=== PATIENT | male | born 1970 | race Caucasian/White ===

== ENCOUNTER 2021-01-08 00:04 | Emergency (ER) | payer OTHER ==
[~2021-01-08] VITALS: Ht 180.3 cm; Wt 109.0 kg
[2021-01-08] MEDS ORDERED: IBUPROFEN 600MG TABLET PO STA (01:13)
[2021-01-08 01:32] VITALS: BP 152/90
[2021-01-08] MEDS ORDERED: CYCL25PO21 PO (03:17)
[2021-01-08] MEDS ORDERED: IBUP-2029 PO (03:17)
== END 2021-01-08 03:24 | disposition home or self-care (01) ==
LOC: ER 00:21
DX: S16.1XXA Strain of muscle, fascia and tendon at neck level, initial encounter (principal); V43.52XA Car driver injured in collision with other type car in traffic accident, initial encounter; Y93.89 Activity, other specified; Y92.410 Unspecified street and highway as the place of occurrence of the external cause
CPT/HCPCS: 72100; 99284